=== PATIENT | female | born 1965 | race African-American/Black ===

== ENCOUNTER 2017-01-29 08:56 | Outpatient (CLI) | payer BC ==
--- NOTE | 2017-01-29 14:40 | RAD ---
VOIDING CYSTOURETHROGRAM: Date: 01/29/17 HISTORY: Microscopic hematuria, assess for vesicoureteral reflux. FINDINGS: [employer] imaging is unremarkable. The patient's urinary bladder was catheterized under sterile condition s. Incompletely filled and filled images of the urinary bladder are unremarkable. Oblique imaging wit h a full urinary bladder is unremarkable as well. The patient was imaged during voiding, demonstratin g a normal appearing urethra. No evidence for vesicoureteral reflux was elicited during this examinat ion. The patient nearly completely empties urinary bladder upon voiding. IMPRESSION: Unremarkable voiding cystourethrogram. No evidence for vesicoureteral reflux seen. POS: [facility]
[2017-01-29] MEDS ORDERED: ISOVUE-370 76%-LOCM 1 ML ONE (17:12)
== END 2017-01-29 08:57 | disposition home or self-care (01) ==
LOC: RAD 08:56
PROVIDERS: ATTEND Urology
DX: R31.29 Other microscopic hematuria (principal)
CPT/HCPCS: 51600; 74455

== ENCOUNTER 2017-02-09 07:33 | Outpatient (CLI) | payer BC | END 2017-02-09 07:34 | disposition home or self-care (01) | LOC: BICMAMMO 07:33 | PROVIDERS: ATTEND Family Medicine | DX: Z12.31 Encounter for screening mammogram for malignant neoplasm of breast (principal) | CPT/HCPCS: 77063; 77067; G0202 ==

== ENCOUNTER 2018-02-26 15:52 | Outpatient (CLI) | payer OTHER | END 2018-02-26 15:53 | disposition home or self-care (01) | LOC: BICMAMMO 15:52 | PROVIDERS: ATTEND Family Medicine | DX: Z12.31 Encounter for screening mammogram for malignant neoplasm of breast (principal); N64.89 Other specified disorders of breast; Z80.3 Family history of malignant neoplasm of breast | CPT/HCPCS: 77063; 77067 ==

== ENCOUNTER 2018-09-06 07:42 | Outpatient (CLI) | payer OTHER ==
--- NOTE | 2018-09-06 10:15 | ULT ---
ABDOMINAL ULTRASOUND COMPLETE: HISTORY: Epigastric pain. FINDINGS: Liver echogenicity is within normal limits. No focal liver masses. The gallbladder demonstrates no evidence of gallstones, wall thickening, edema, or pericholecystic fluid. Visualized pancreas, Visu alized pancreas, IVC, aorta, and spleen are unremarkable. No renal hydronephrosis. No abscess or ab normal fluid collection. IMPRESSION: Unremarkable abdominal ultrasound complete. No evidence of gallstones. POS: [facility]
== END 2018-09-06 07:43 | disposition home or self-care (01) ==
LOC: ULT 07:42
PROVIDERS: ATTEND Family Medicine
DX: R10.13 Epigastric pain (principal)
CPT/HCPCS: 76700

== ENCOUNTER 2019-03-21 12:17 | Outpatient (CLI) | payer OTHER ==
--- NOTE | 2019-03-27 13:27 | MMO ---
Bilateral MAMMO Bilat Screen [facility]. CLINICAL HISTORY: Patient is 53 years old and is seen for screening. The patient has no personal history of cancer. VIEWS: The views performed were: bilateral craniocaudal with tomosynthesis and bilateral mediolateral oblique with tomosynthesis. FILMS COMPARED: The present examination has been compared to prior imaging studies performed at [facility] on 02/09/2017 and 02/26/2018, and at [facility] on 12/08/2014 and 12/13/2015. This study has been interpreted with the assistance of computer-aided detection. MAMMOGRAM FINDINGS: There are scattered fibroglandular densities. There are no suspicious masses, suspicious calcifications, or new areas of architectural distortion. IMPRESSION: THERE IS NO MAMMOGRAPHIC EVIDENCE OF MALIGNANCY. A ROUTINE FOLLOW-UP MAMMOGRAM IN 1 YEAR IS RECOMMENDED. THE RESULTS OF THIS EXAM WERE SENT TO THE PATIENT. ACR BI-RADS Category 1 - Negative MAMMOGRAPHY NOTE: 1. A negative mammogram report should not delay a biopsy if a dominant of clinically suspicious mass is present. 2. Approximately 10% to 15% of breast cancers are not detected by mammography. 3. Adenosis and dense breasts may obscure an underlying neoplasm. Reported by: ALVINO HARE MD Electonically Signed: [id number]
== END 2019-03-21 12:18 | disposition home or self-care (01) ==
LOC: BICMAMMO 12:17
PROVIDERS: ATTEND Family Medicine
DX: Z12.31 Encounter for screening mammogram for malignant neoplasm of breast (principal)
CPT/HCPCS: 77063; 77067

== ENCOUNTER 2019-09-17 11:41 | Emergency (ER) | payer OTHER ==
[2019-09-17 12:38] LABS: #Eosinphils 0.2 thou/uL (0.0-0.7); #Lymphocytes 2.8 thou/uL (1.20-3.40); #Monocytes 0.4 thou/uL (0.11-0.59); #Neutrophils 3.4 thou/uL (1.40-6.50); %Basophils 0.6 % (0.0-1.0); %Eosinophils 2.4 % (0.0-10.0); %Lymphocytes 41.5 % (21.0-51.0); %Monocytes 5.1 % (0.0-10.0); %Neutrophils 50.4 % (42.0-75.0); Hemoglobin 13.2 g/dL (12.0-16.0); Mean Corpuscular HGB CONC 33.1 g/dL (32.0-36.0); Mean Corpuscular Hemoglobin 30.2 pg (27.0-31.0); Mean Corpuscular Volume 91.2 fL (78.0-98.0); Mean Platelet Volume 7.7 fL (7.4-10.4); Platelet Count 207 thou/uL (130-400); RBC Distribution Width 11.5 % (11.5-14.5); Red Blood Cell (RBC) Count 4.36 mill/uL (4.20-5.40); White Blood Cell (WBC) Count 6.8 thou/uL (4.8-10.8)
--- NOTE | 2019-09-17 12:39 | RAD ---
EXAM: Single view of the chest HISTORY: Dizziness COMPARISON: None FINDINGS: Single view of the chest shows a normal sized cardiomediastinal silhouette. There is no darline dence of consolidation, mass, or pleural effusion. The bones are unremarkable IMPRESSION: No evidence of acute cardiopulmonary disease
[2019-09-17 13:06] LABS: ALT (SGPT) 10 U/L (8-55); AST (SGOT) 18 U/L (5-34); Albumin 4.2 g/dL (3.5-5.0); Alkaline Phosphatase 82 U/L (40-110); Anion Gap 11 mmol/L (10-20); BUN (Urea Nitrogen) 13 mg/dL (9.8-20.1); Bilirubin, Total 0.2 mg/dL (0.2-1.2); Calc. Creatinine Clearance 0 mL/min (70-130); Calcium 9.1 mg/dL (7.8-10.44); Carbon Dioxide 26 mmol/L (22-29); Chloride 104 mmol/L (98-107); Estimated GFR-MDRD Greater than 90; Globulin 3.4 g/dL (2.4-3.5); Glucose 119 mg/dL (70-105); Lipase 47 U/L (8-78); Potassium 3.6 mmol/L (3.5-5.1); Protein, Total 7.6 g/dL (6.0-8.3); Sodium 137 mmol/L (136-145)
[2019-09-17 13:35] LABS: Magnesium 1.9 mg/dL (1.6-2.6)
== END 2019-09-17 15:27 | disposition home or self-care (01) ==
LOC: ERS 11:41
DX: R42 Dizziness and giddiness (principal)
CPT/HCPCS: 36415; 71045; 80053; 82550; 83690; 83735; 84443; 84484; 85025; 93005

== ENCOUNTER 2020-02-06 15:18 | Emergency (ER) | payer OTHER ==
[2020-02-06] MEDS ORDERED: Acetaminophen 500 MG TAB ONE (15:43)
--- NOTE | 2020-02-06 15:55 | RAD ---
Chest AP view INDICATION: History of Covid disease, fever and shortness of breath COMPARISON: Prior exam dated September 17, 2019 FINDINGS: Lungs: There is new patchy airspace opacities within both mid to lower lungs Cardiac silhouette: The cardiomediastinal silhouette appears within normal limits. Pulmonary vasculature: Normal Pleural spaces: No pleural effusion or pneumothorax is demonstrated. Upper abdomen: No abnormality seen. Osseous structures: No acute osseous abnormality. Additional findings: None. IMPRESSION: Bilateral pneumonia
[2020-02-06 16:02] LABS: #Lymphocytes 1.1 thou/uL (1.20-3.40); #Monocytes 0.2 thou/uL (0.11-0.59); #Neutrophils 4.3 thou/uL (1.40-6.50); %Basophils 0.2 % (0.0-1.0); %Eosinophils 0.3 % (0.0-10.0); %Lymphocytes 19.5 % (21.0-51.0); Hemoglobin 12.4 g/dL (12.0-16.0); Mean Corpuscular HGB CONC 33.1 g/dL (32.0-36.0); Mean Corpuscular Hemoglobin 29.9 pg (27.0-31.0); Mean Corpuscular Volume 90.3 fL (78.0-98.0); Mean Platelet Volume 7.3 fL (7.4-10.4); Platelet Count 172 thou/uL (130-400); RBC Distribution Width 10.9 % (11.5-14.5); Red Blood Cell (RBC) Count 4.15 mill/uL (4.20-5.40); White Blood Cell (WBC) Count 5.7 thou/uL (4.8-10.8)
[2020-02-06] MEDS ORDERED: Ketorolac Tromethamine 30 MG/ML VIAL ONE (16:06)
[2020-02-06 16:09] LABS: INR-International Normal Ratio 0.9; PTT 33.2 sec (22.9-36.1); Prothrombin Time 12.3 sec (12.0-14.7)
[2020-02-06 16:26] LABS: ALT (SGPT) 27 U/L (8-55); AST (SGOT) 34 U/L (5-34); Albumin 3.7 g/dL (3.5-5.0); Alkaline Phosphatase 87 U/L (40-110); Anion Gap 14 mmol/L (10-20); BUN (Urea Nitrogen) 4 mg/dL (9.8-20.1); Bilirubin, Total 0.2 mg/dL (0.2-1.2); Calc. Creatinine Clearance 0 mL/min (70-130); Calcium 8.6 mg/dL (7.8-10.44); Carbon Dioxide 24 mmol/L (22-29); Chloride 102 mmol/L (98-107); Globulin 3.4 g/dL (2.4-3.5); Glucose 114 mg/dL (70-105); Potassium 3.2 mmol/L (3.5-5.1); Protein, Total 7.1 g/dL (6.0-8.3); Sodium 137 mmol/L (136-145)
[2020-02-06 16:41] LABS: Bilirubin Negative (Negative); Blood, Urine Negative (Negative); Clarity Clear (Clear); Glucose, Urine (Dipstick) Normal (Negative); Ketone, Urine 20 mg/dL (Negative); Leukocyte Negative Leu/uL (Negative); Nitrite Negative (Negative); Protein, Urine (Dipstick) 10 mg/dL (Neg-Trace); Specific Gravity, Urine 1.016 (1.002-1.036); Urobilinogen Normal mg/dL (Less than 2)
== END 2020-02-06 17:20 | disposition home or self-care (01) ==
LOC: ERS 15:18
DX: U07.1 COVID-19 (principal); J12.89 Other viral pneumonia; Z79.82 Long term (current) use of aspirin
CPT/HCPCS: 36415; 71045; 80053; 81003; 83605; 85025; 85610; 85730; 87040; 87086; 93005; 94760; 96374; J1885

== ENCOUNTER 2020-02-09 15:58 | Emergency (ER) | payer OTHER ==
--- NOTE | 2020-02-09 16:38 | RAD ---
XR Chest 1 View Portable HISTORY: Chest pain, shortness of breath,covid 19 positive COMPARISON: 02/06/2020 FINDINGS: The heart size is normal. Patchy bilateral multifocal opacities are again seen. No pneumoth oraces or pleural effusions are identified. IMPRESSION: Stable exam consistent with pneumonia.
[2020-02-09 17:04] LABS: #Lymphocytes 0.9 thou/uL (1.20-3.40); #Monocytes 0.5 thou/uL (0.11-0.59); #Neutrophils 7.2 thou/uL (1.40-6.50); %Eosinophils 0.2 % (0.0-10.0); %Lymphocytes 10.8 % (21.0-51.0); %Monocytes 6.2 % (0.0-10.0); %Neutrophils 82.8 % (42.0-75.0); Hemoglobin 13.1 g/dL (12.0-16.0); Mean Corpuscular HGB CONC 31.2 g/dL (32.0-36.0); Mean Corpuscular Hemoglobin 28.3 pg (27.0-31.0); Mean Corpuscular Volume 90.6 fL (78.0-98.0); Mean Platelet Volume 6.8 fL (7.4-10.4); Platelet Count 316 thou/uL (130-400); Red Blood Cell (RBC) Count 4.61 mill/uL (4.20-5.40); White Blood Cell (WBC) Count 8.7 thou/uL (4.8-10.8)
[2020-02-09 17:27] LABS: ALT (SGPT) 94 U/L (8-55); AST (SGOT) 127 U/L (5-34); Albumin 3.8 g/dL (3.5-5.0); Alkaline Phosphatase 113 U/L (40-110); Anion Gap 16 mmol/L (10-20); BUN (Urea Nitrogen) 10 mg/dL (9.8-20.1); Bilirubin, Total 0.3 mg/dL (0.2-1.2); Calc. Creatinine Clearance 0 mL/min (70-130); Calcium 8.9 mg/dL (7.8-10.44); Carbon Dioxide 28 mmol/L (22-29); Chloride 98 mmol/L (98-107); Glucose 141 mg/dL (70-105); Potassium 3.5 mmol/L (3.5-5.1); Protein, Total 7.8 g/dL (6.0-8.3); Sodium 138 mmol/L (136-145)
[2020-02-09 18:24] LABS: Bilirubin Negative (Negative); Blood, Urine Negative (Negative); Clarity Clear (Clear); Glucose, Urine (Dipstick) Normal (Negative); Ketone, Urine Negative (Negative); Leukocyte Negative Leu/uL (Negative); Nitrite Negative (Negative); Protein, Urine (Dipstick) Negative (Neg-Trace); Specific Gravity, Urine 1.009 (1.002-1.036); Urobilinogen Normal mg/dL (Less than 2)
[2020-02-09] MEDS ORDERED: Albuterol 200 PUFF (6.7GM INHALER) ONE (20:12)
== END 2020-02-09 20:18 | disposition home or self-care (01) ==
LOC: ERS 15:58
DX: U07.1 COVID-19 (principal); Z79.899 Other long term (current) drug therapy; Z79.82 Long term (current) use of aspirin
CPT/HCPCS: 36415; 71045; 80053; 81003; 85025; 93005

== ENCOUNTER 2020-05-07 12:26 | Outpatient (CLI) | payer OTHER | END 2020-05-07 12:27 | disposition home or self-care (01) | LOC: BICMAMMO 12:26 | PROVIDERS: ATTEND Family Medicine | DX: Z12.31 Encounter for screening mammogram for malignant neoplasm of breast (principal); Z80.3 Family history of malignant neoplasm of breast | CPT/HCPCS: 77063; 77067 ==

== ENCOUNTER 2022-06-09 12:07 | Outpatient (CLI) | payer BC | END 2022-06-09 12:08 | disposition home or self-care (01) | LOC: BICMAMMO 12:07 | PROVIDERS: ATTEND Family Medicine | DX: Z12.31 Encounter for screening mammogram for malignant neoplasm of breast (principal); Z80.3 Family history of malignant neoplasm of breast | CPT/HCPCS: 77063; 77067 ==

== ENCOUNTER 2022-10-31 12:35 | Outpatient (CLI) | payer BC | END 2022-10-31 12:36 | disposition home or self-care (01) | LOC: RAD 12:35 | PROVIDERS: ATTEND Nurse Practitioner Family | DX: M25.572 Pain in left ankle and joints of left foot (principal) ==